=== PATIENT | female | born 2000 | race Caucasian/White ===

== ENCOUNTER 2020-07-10 15:43 | Emergency (ER) | payer OTHER ==
[~2020-07-10] VITALS: Ht 157.5 cm; Wt 53.1 kg
[2020-07-10 15:47] VITALS: BP 127/66; Ht 157.5 cm; Wt 53.1 kg
== END 2020-07-10 18:35 | disposition home or self-care (01) ==
LOC: ED 15:43
DX: D16.4 Benign neoplasm of bones of skull and face (principal); R51.9 Headache, unspecified